=== PATIENT | female | born 1970 | race Caucasian/White ===

== ENCOUNTER 2021-04-26 14:25 | Emergency (ER) | payer SELFPAY ==
[~2021-04-26] VITALS: Ht 157.5 cm; Wt 52.2 kg
== END 2021-04-26 16:33 | disposition home or self-care (01) ==
LOC: ER 14:25
DX: K21.9 Gastro-esophageal reflux disease without esophagitis (principal); J40 Bronchitis, not specified as acute or chronic; Z88.2 Allergy status to sulfonamides
CPT/HCPCS: 71046; 99283-25; A9270